=== PATIENT | female | born 1990 | race Hispanic/Latino ===

== ENCOUNTER 2017-03-15 21:10 | Emergency (ER) | payer BC ==
[2017-03-15 21:15] VITALS: BP 132/92; PULSE 71; RESP 16; TEMP 98.2; O2SAT 98
[2017-03-15] MEDS ORDERED: Absorbable Gelatin Sponge Size 12-7 ONE (21:38)
--- NOTE | 2017-03-15 22:02 | ED PDOC ---
Upper Extremity Pain/Injury Time Seen by Provider: 03/15/17 21:16 Chief Complaint (Nursing): Finger,Hand,&Wrist Chief Complaint (Provider): Right thumb skin avulsion History Per: Patient History/Exam Limitations: no limitations Onset/Duration Of Symptoms: Mins Current Symptoms Are (Timing): Still Present Quality: Sharp Severity: None Additional Complaint(s): Pt cut finger at home with knife while cutting food. [employer] UTD. Mild active bleeding. Past Medical History Reviewed: Historical Data, Nursing Documentation, Vital Signs Vital Signs: Last Vital Signs Temp 98.2 F 03/15/17 21:13 Pulse 71 03/15/17 21:13 Resp 16 03/15/17 21:13 BP 132/92 H 03/15/17 21:13 Pulse Ox 98 03/15/17 21:13 - Medical History PMH: No Chronic Diseases - Surgical History Surgical History: No Surg Hx - Family History Family History: States: No Known Family Hx - Living Arrangements Living Arrangements: With Family - Social History Current smoker - smoking cessation education provided: No Alcohol: None Drugs: Denies - Allergies Allergies/Adverse Reactions: Allergies Allergy/AdvReac Type Severity Reaction Status Date / Time amoxicillin Allergy RASH Verified 03/15/17 21:13 Review of Systems ROS Statement: Except As Marked, All Systems Reviewed And Found Negative Skin: Positive for: Other (Rigth thumb laceration) Physical Exam - Reviewed Nursing Documentation Reviewed: Yes Vital Signs Reviewed: Yes - Physical Exam Appears: Positive for: Well, Non-toxic, No Acute Distress Head Exam: Positive for: ATRAUMATIC, NORMAL INSPECTION, NORMOCEPHALIC Skin: Positive for: Warm. Negative for: Normal Color ((+) superficial skin avulsion, mild active bleeding ) Eye Exam: Positive for: Normal appearance ENT: Positive for: Normal ENT Inspection Neck: Positive for: Normal, Painless ROM Respiratory: Negative for: Accessory Muscle Use, Respiratory Distress Back: Positive for: Normal Inspection Extremity: Positive for: Normal ROM. Negative for: Tenderness Neurologic/Psych: Positive for: Alert, Oriented - ECG O2 Sat by Pulse Oximetry: 98 Disposition - Clinical Impression Clinical Impression: Skin avulsion - Patient ED Disposition Is Patient to be Admitted: No Counseled Patient/Family Regarding: Diagnosis, Need For Followup - Disposition Disposition: Routine/Home Disposition Time: 22:02 Condition: GOOD Instructions: Skin Avulsion (ED) Forms: [employer] (T[place]anian)
== END 2017-03-15 22:48 | disposition home or self-care (01) ==
LOC: H.ER 21:10
DX: S61.002A Unspecified open wound of left thumb without damage to nail, initial encounter (principal); W26.0XXA Contact with knife, initial encounter; Y92.89 Other specified places as the place of occurrence of the external cause